=== PATIENT | male | born 1965 | race Caucasian/White ===

== ENCOUNTER 2018-09-10 20:02 | Emergency (ER) | payer OTHER, SELFPAY ==
[2018-09-10 20:03] VITALS: BP 140/85; PULSE 95; RESP 16; TEMP 36.6; O2SAT 98; BMI 22.9
[2018-09-10] MEDS: morphine 8 MG/ML Syringe IM (20:21)
[2018-09-10] MEDS: Orphenadrine 60 MG/2 ML Ampul IM (20:21)
[2018-09-10] MEDS: HYDROmorphone 1 MG/ML Syringe IM (21:10)
--- NOTE | 2018-09-10 21:42 | ED.DCSUM_ITS ---
- ER Visit Summary Date of Service: 09/10/18 Chief Complaint: Back pain History of Present Illness: The patient is a 53 M who presents with back pain. It started today. He states it occurred when he was lifting. He has pain in the lumbar region. He states it is locked up. He denies numbness or tingling to the legs. No bowel or bladder incontinence. He was diagnosed with sciatica 3 months ago. This was better with steroids and Flexeril. He took nothing for this at home today. Physical Examination: Vital signs reviewed. HEENT exam unremarkable. Heart is regular rate and rhythm without murmurs. Lungs are clear to auscultation. Abdomen is soft and nontender. Back exam reveals lumbar tenderness to palpation. Extremities reveal no edema. Skin exam normal. Neurologic exam normal. Test Results: None performed Emergency Department Course and Treatment: Patient was given morphine and Norflex. He continues to have pain so he was given Dilaudid. He states he still having a lot of pain. Told him that there is nothing else that we could do for him at this time. I will give him prednisone here and for home. I will give him a short course of [place] and Flexeril. He will follow-up with his PCP Treatment Plan: [] Disposition: Discharge Impression: Lumbar strain This note was generated with [employer] dictation software. It may contain incorrect words, spelling, and punctuation that were not noted in review of the chart prior to signing ED Disposition - Plan for ED Patient: Chief Complaint: Back Referrals: [facility] Doctor,Out of [Primary Care Provider] -
--- NOTE | 2018-09-10 21:42 | ED.DEP ---
ED Disposition - Plan for ED Patient: Disposition: Home or Assisted Living Chief Complaint: Back Instructions: ED Sciatica Prescriptions: Hydrocodone Bitart/Apap 5-325 [[place] 5MG-325MG] 1 tab PO Q6H PRN PRN 3 Days #10 tab PRN Reason: Pain Prednisone [Deltasone] 40 mg PO DAILY #10 tab Cyclobenzaprine [Flexeril] 10 mg PO TID PRN #20 tab PRN Reason: Muscle Spasm Referrals: [facility] Doctor,Out of [Primary Care Provider] -
[2018-09-10] MEDS: predniSONE 20 MG Tablet 60 MG PO (21:59)
[2018-09-10 22:00] VITALS: BP 119/69; PULSE 66; RESP 14; O2SAT 94
== END 2018-09-10 22:02 | disposition home or self-care (01) ==
PROVIDERS: Emergency Provider Emergency Medicine
DX: S39.012A Strain of muscle, fascia and tendon of lower back, initial encounter (principal); Z79.899 Other long term (current) drug therapy; X58.XXXA Exposure to other specified factors, initial encounter; Y93.89 Activity, other specified; Y92.89 Other specified places as the place of occurrence of the external cause; Y99.8 Other external cause status
CPT/HCPCS: 96372; 99283

== ENCOUNTER → 2019-04-27 | Outpatient (CLI) | payer OTHER, SELFPAY ==
[2019-04-27 18:19] LABS: AST(SGOT) 22 U/L (15-37); Alanine Aminotransfer ALT/SGPT 41 U/L (16-61); Alkaline Phosphatase 102 U/L (45-117); Bilirubin, Direct 0.09 mg/dL (0.00-0.30)
== END | disposition home or self-care (01) ==
LOC: MTLAB 15:55
DX: R53.81 Other malaise (principal)
CPT/HCPCS: 36415; 82247; 82248; 84075; 84450; 84460

== ENCOUNTER → 2019-11-10 10:08 | Outpatient (CLI) | payer OTHER, SELFPAY ==
[2019-11-10 11:11] LABS: ALB/GLOB Ratio 0.9 RATIO (0.9-2.4); AST(SGOT) 20 U/L (15-37); Alanine Aminotransfer ALT/SGPT 32 U/L (16-61); Albumin, Serum 3.6 g/dL (3.2-5.0); Alkaline Phosphatase 85 U/L (45-117); Anion Gap 7 (5-15); BUN 11 mg/dL (7-18); BUN/Creat Ratio 9.6 RATIO (10-20); Calcium,Total 8.6 mg/dL (8.5-10.1); Chloride 104 mmol/L (98-107); Cholesterol 256 mg/dL (200); Creatinine, Serum 1.15 mg/dL (0.70-1.30); EST Glomerular Filtration Rate 70 mL/min (>60); Est Glom Filt Rate - Afr Amer 85 mL/min (>60); Glucose 108 mg/dL (74-106); High Density Lipoprotein 27 mg/dL; PSA,Total - Annual Screen 0.55 ng/mL (0.00-4.00); Potassium 4.1 mmol/L (3.5-5.1); Protein, Total 7.6 g/dL (6.4-8.2); Sodium Level 138 mmol/L (136-145); Triglycerides 318 mg/dL; Very Low Density Lipoprotein 64 mg/dL (5-40)
== END ==
DX: Z12.6 Encounter for screening for malignant neoplasm of bladder (principal); Z12.5 Encounter for screening for malignant neoplasm of prostate
CPT/HCPCS: 36415; 80053; 80061; 84153; G0103

== ENCOUNTER → 2021-07-06 08:55 | Outpatient (CLI) | payer OTHER, SELFPAY ==
[2021-07-06 09:50] LABS: AST(SGOT) 17 U/L (15-37); Alanine Aminotransfer ALT/SGPT 22 U/L (16-61); Albumin, Serum 3.8 g/dL (3.2-5.0); Alkaline Phosphatase 41 U/L (45-117); Anion Gap 4 (5-15); BUN 17 mg/dL (7-18); Calcium,Total 8.7 mg/dL (8.5-10.1); Chloride 110 mmol/L (98-107); Cholesterol 188 mg/dL (200); Creatinine, Serum 1.55 mg/dL (0.70-1.30); EST Glomerular Filtration Rate 49 mL/min (>60); Est Glom Filt Rate - Afr Amer 60 mL/min (>60); Globulin 3.7 g/dL (2.2-4.2); Glucose 121 mg/dL (74-106); High Density Lipoprotein 41 mg/dL; Protein, Total 7.5 g/dL (6.4-8.2); Sodium Level 138 mmol/L (136-145); Triglycerides 97 mg/dL; Very Low Density Lipoprotein 19 mg/dL (5-40)
== END ==
PROVIDERS: PCP Family Medicine; Referring Provider Family Medicine; Visit Provider Family Medicine
DX: E78.2 Mixed hyperlipidemia (principal)
CPT/HCPCS: 36415; 80053; 80061

== ENCOUNTER → 2022-01-03 | Outpatient (CLI) | payer OTHER, SELFPAY ==
[2022-01-03 11:04] LABS: Hemoglobin A1c 5.4 % (3.8-5.6)
[2022-01-03 11:06] LABS: ALB/GLOB Ratio 1.1 RATIO (0.9-2.4); AST(SGOT) 21 U/L (15-37); Alanine Aminotransfer ALT/SGPT 27 U/L (16-61); Albumin, Serum 3.9 g/dL (3.2-5.0); Alkaline Phosphatase 35 U/L (45-117); Anion Gap 8 (5-15); BUN 20 mg/dL (7-18); BUN/Creat Ratio 13.2 RATIO (10-20); Calcium,Total 9.4 mg/dL (8.5-10.1); Chloride 107 mmol/L (98-107); Cholesterol 219 mg/dL (200); Creatinine, Serum 1.52 mg/dL (0.70-1.30); EST Glomerular Filtration Rate 50 mL/min (>60); Est Glom Filt Rate - Afr Amer 61 mL/min (>60); Globulin 3.5 g/dL (2.2-4.2); Glucose 120 mg/dL (74-106); High Density Lipoprotein 42 mg/dL; PSA,Total - Annual Screen 0.89 ng/mL (0.00-4.00); Potassium 3.9 mmol/L (3.5-5.1); Protein, Total 7.4 g/dL (6.4-8.2); Sodium Level 138 mmol/L (136-145); Thyroid Stim Hormone (TSH) 1.93 uIU/mL (0.358-3.74); Triglycerides 124 mg/dL; Very Low Density Lipoprotein 25 mg/dL (5-40)
== END | disposition home or self-care (01) ==
PROVIDERS: PCP Family Medicine; Visit Provider Family Medicine
DX: E78.2 Mixed hyperlipidemia (principal); R94.4 Abnormal results of kidney function studies; R73.09 Other abnormal glucose; Z12.5 Encounter for screening for malignant neoplasm of prostate
CPT/HCPCS: 36415; 80053; 80061; 83036; 84153; 84439; 84443; G0103

== ENCOUNTER → 2023-02-27 | Outpatient (CLI) | payer OTHER, SELFPAY ==
[2023-02-27 09:58] LABS: PSA,Total - Annual Screen 0.95 ng/mL (0.00-4.00)
== END | disposition home or self-care (01) ==
LOC: LAB 08:42
PROVIDERS: PCP Family Medicine; Referring Provider Urology; Visit Provider Urology
DX: Z12.5 Encounter for screening for malignant neoplasm of prostate (principal)
CPT/HCPCS: 36415; 84153; G0103

== ENCOUNTER 2024-11-01 14:21 | Emergency (ER) | payer OTHER, SELFPAY ==
[2024-11-01] VITALS (14 sets, daily range): BP systolic 116–146; BP diastolic 65–83; PULSE 62–89; RESP 11–28; TEMP 36.2; O2SAT 94–97; BMI 24.8
--- NOTE | 2024-11-01 16:09 | EKG12_ITS ---
Test Reason : CP Blood Pressure : */* mmHG Vent. Rate : 85 BPM Atrial Rate : 85 BPM P-R Int : 164 ms QRS Dur : 92 ms QT Int : 352 ms P-R-T Axes : 34 -85 54 degrees QTcB Int : 418 ms Normal sinus rhythm Left axis deviation Pulmonary disease pattern Incomplete right bundle branch block Cannot rule out Inferior infarct , age undetermined Abnormal ECG Confirmed by MUMTAZ CASTILLO, LEELEE ([id number]), general expeditor KELLY GONZALEZ ([id number]) on 11/02/2024 8:17:35 AM Referred By: ZAKIA/CHEPE Confirmed By: LEELEE PANDYA MD
--- NOTE | 2024-11-01 16:10 | ED.VIS.CHEST ---
HPI History of Present Illness Chief Complaint: Chest Pain Informant: patient Narrative Narrative: Epigastric chest burning for over 24 hours. He was able to sleep awake and noticed symptoms. States vague. No sharp sensations no cough. Normal bowel movement this morning. Took antacids no relief. Hypertension hyperlipidemia borderline diabetes. Tobacco history. Reports strong family history of heart attacks in the family. He had a stress test over 15 years ago. No heart caths. He states with symptoms not going away he came to get evaluated. Denies any black or bloody stools. Denies any cough. Prior Similar Symptoms: No Recent Illness/Hospitalization: No CVD Risk Factors: Positive for Hypertension, Diabetes, Hypercholesterolemia, Family History 1' </=55 and Smoking PE Risk Factors: Negative for Recent Travel/Surgery, Recent Immobilization or Prior DVT or PE [facility] Medical History Essential hypertension Anxiety Mixed hyperlipidemia Family history of coronary artery disease Appendicitis Home Medications ?Medication ?Instructions ?Recorded ?Last Taken ?Type duloxetine 60 mg capsule,delayed 60 mg PO DAILY 11/17/14 04/04/17 09:00 History release mirtazapine 15 mg tablet 7.5 mg PO QHS 11/17/14 04/04/17 21:00 History alprazolam 2 mg tablet (Xanax) 2 mg PO TID PRN anxiety 01/03/23 Unknown History dicyclomine 20 mg tablet 20 mg PO BID 01/03/23 Unknown History fenofibrate nanocrystallized 145 145 mg PO DAILY 01/03/23 Unknown History mg tablet lisinopril 40 mg tablet 40 mg PO DAILY 01/03/23 Unknown History meloxicam 15 mg tablet 15 mg PO DAILY 01/03/23 Unknown History sildenafil 100 mg tablet 100 mg PO DAILY PRN 01/03/23 Unknown History tadalafil 20 mg tablet (Cialis) 20 mg PO DAILY PRN 01/03/23 Unknown History tamsulosin 0.4 mg capsule (Flomax) 0.4 mg PO DAILY 01/03/23 Unknown History metoprolol tartrate 25 mg tablet 50 mg (2 x 25 mg) PO ONCE #2 tabs 02/05/23 Unknown Rx pantoprazole 40 mg tablet,delayed 40 mg PO DAILY #30 tabs 11/01/24 Unknown Rx release Allergy/AdvReac Type Severity Reaction Status Date / Time No Known Allergies Allergy Verified 11/01/24 14:24 Family History Father CAD (coronary artery disease) Hypertension Myocardial infarction Grandfather Hypertension Myocardial infarction CAD (coronary artery disease) Surgical History History of appendectomy Social History Smoking Status: Current every day smoker tobacco type: cigarettes alcohol intake: former substance use type: does not use caffeine: Yes ROS ROS ED Constitutional Constitutional ED: Denies chills, fever(s) or sweats ENT ENT ED: Denies sore throat Cardiovascular Cardiovascular: Reports chest pain; Denies leg edema, palpitations or racing heartbeat Respiratory/Chest Respiratory/Chest: Denies cough, dyspnea or dyspnea on exertion Gastrointestinal Gastrointestinal: Reports abdominal pain; Denies diarrhea, nausea or vomiting Genitourinary Genitourinary ED: Denies dysuria, hematuria or urinary frequency Musculoskeletal Musculoskeletal: Denies back pain, extremity pain or neck pain Integumentary Denies rash or wounds Neurologic Neurologic: Denies headache(s), paresthesias or weakness EXAM Physical Exam Const Vital Signs: 11/01/24 14:22 11/01/24 15:21 11/01/24 15:51 Temperature 97.2 F L Temperature Source Temporal Pulse Rate 89 74 71 Respiratory Rate 16 21 H 20 H Blood Pressure 146/83 H 129/76 H Blood Pressure Mean 104 93 Pulse Ox 97 97 97 Oxygen Delivery Method Room Air Room Air 11/01/24 16:00 11/01/24 16:09 11/01/24 16:15 Temperature Temperature Source Pulse Rate 70 Respiratory Rate 21 H Blood Pressure 130/70 H 129/65 H Blood Pressure Mean 88 85 Pulse Ox 96 Oxygen Delivery Method Room Air 11/01/24 16:15 11/01/24 16:30 11/01/24 16:45 Temperature Temperature Source Pulse Rate 72 69 68 Respiratory Rate 21 H 26 H 24 H Blood Pressure 129/65 H 126/70 H 116/75 Blood Pressure Mean 85 87 90 Pulse Ox 96 94 95 Oxygen Delivery Method 11/01/24 17:00 11/01/24 17:15 11/01/24 17:30 Temperature Temperature Source Pulse Rate 69 64 64 Respiratory Rate 15 23 H 27 H Blood Pressure 130/68 H Blood Pressure Mean 88 Pulse Ox 95 Oxygen Delivery Method 11/01/24 17:45 11/01/24 18:00 11/01/24 18:15 Temperature Temperature Source Pulse Rate 62 64 Respiratory Rate 27 H 28 H 11 L Blood Pressure Blood Pressure Mean Pulse Ox Oxygen Delivery Method 11/01/24 18:25 Temperature 97.2 F L Temperature Source Pulse Rate 64 Respiratory Rate 11 L Blood Pressure 130/68 H Blood Pressure Mean 88 Pulse Ox 95 Oxygen Delivery Method Positive well nourished and well developed General Appearance ED: well developed and NAD HEENT Reports moist mucous membranes normocephalic and atraumatic Eyes General Eye ED: Yes normal appearance of both eyes Neck full ROM Chest Wall Chest: Negative for tenderness Resp normal respiratory effort and normal air movement Effort and Inspection: symmetric chest movement; Negative for respiratory distress Cardio regular rate, regular rhythm and no murmurs Peripheral Pulses: pulses 2+ throughout GI normal to inspection, nondistended, normoactive bowel sounds GI Narrative: Mild epigastric tenderness. Negative Marte's or McBurney's tenderness. Palpation: Negative for guarding or rebound tenderness present Extremity normal to inspection General Extremety ED: Negative for edema or tenderness General Extremity: Negative for edema Neuro oriented x3 and no sensory deficits noted Sensorium / Orientation: awake and alert Skin no rashes or lesions noted and no wounds Heart Score History: Slightly/Non-Suspicious ECG: Normal Age: >45 - <65 years Risk Factors: >/= 3 Risk Factors or History of CAD Troponin: </= Normal Limit Score: 3 MDM MDM MDM Narrative Medical decision making narrative: Interventions / MDM: Differential diagnosis: Chest pain, epigastric pain Diagnosis considered but do not suspect: ACS however EKG negative cardiac enzyme. No clinical cholecystitis, pancreatitis however lipase normal. My EKG interpretation: Sinus rate of 85, no ST or T wave changes. Imaging independently reviewed and interpreted by myself: 2 view chest x-ray: No acute process. External documents reviewed: N/A Test considered but not ordered:N/A ED course: Patient burning epigastric chest region. Cardiac risk factors. Nonsurgical abdomen. EKG sinus rhythm no acute findings. Persistent burning for over 24 hours. Single troponin ordered. Abdominal labs ordered. GI cocktail ordered. 181: Troponin negative with symptoms persisted over 24 hours neck troponin less likely cardiac in nature. Abdominal labs are normal. Chest x-ray interval myself read by radiology shows no acute process. He reports GI cocktail had no changes. At this time nonsurgical abdomen. To be placed on a PPI. To follow-up with his PCP with strict return precautions. Patient understands and agrees with plan. All questions were answered. Re-evaluation: stable Disposition discussed with patient/family/significant other: Patient Case discussed with consulting clinician: N/A This note was generated with [employer] dictation software. It may contain incorrect words, spelling, and punctuation that were not noted in checking the note before signing. Lab Data Attestation: I reviewed the patient's lab results. Labs: Laboratory Results - last 24 hr 11/01/24 15:45 WBC 11.6 H RBC 4.74 Hgb 14.5 Hct 42.5 MCV 89.7 MCH 30.6 MCHC 34.1 RDW Std Deviation 44.3 H RDW Coeff of [place] 13.5 Plt Count 420 MPV 9.6 Immature Gran % (Auto) 0.300 Neut % (Auto) 55.6 Lymph % (Auto) 29.8 [place] % (Auto) 10.4 H Eos % (Auto) 2.7 Baso % (Auto) 1.2 H Absolute Neuts (auto) 6.4 Absolute Lymphs (auto) 3.45 Nucleated RBC % 0 Sodium 140 Potassium 4.0 Chloride 106 Carbon Dioxide 21.3 Anion Gap 12 BUN 22 H Creatinine 1.53 H Estim Creat Clear Calc 53.01 Est GFR (MDRD) Non-Af 52 L BUN/Creatinine Ratio 14.2 Glucose 111 H Calcium 10.1 Total Bilirubin 0.25 Direct Bilirubin 0.12 AST 22 ALT 23 Alkaline Phosphatase 39 L Troponin T High Sens < 6 Total Protein 7.1 Albumin 4.3 Globulin 2.9 Lipase 43 Radiography Diagnostic Testing: Clinical Impression(s) from Imaging Studies Chest X-Ray 11/01/24 16:19 IMPRESSION: 1. No convincing or visible acute cardiopulmonary findings 2. Additional description as above. Reading Location: [facility] Discharge Plan Triage Chief Complaint: Chest Pain ED Provider: Siva Caicedo Dx/Rx/DC Orders Clinical Impression: Chest pain, Abdominal pain, epigastric Instructions: ED Chest Pain, Uncertain Cause, ED Epigastric Pain Uncertain Cause Prescriptions: New pantoprazole 40 mg tablet,delayed release (DR/EC) 40 mg PO DAILY Qty: 30 0RF No Action tamsulosin [Flomax] 0.4 mg capsule 0.4 mg PO DAILY tadalafil [Cialis] 20 mg tablet 20 mg PO DAILY PRN Rx Instructions: administer approximately 30min before sexual activity; do not use more than 1 dose per 24hrs meloxicam 15 mg tablet 15 mg PO DAILY sildenafil 100 mg tablet 100 mg PO DAILY PRN Rx Instructions: administer 30 minutes to 4 hours before activity fenofibrate nanocrystallized 145 mg tablet 145 mg PO DAILY lisinopril 40 mg tablet 40 mg PO DAILY dicyclomine 20 mg tablet 20 mg PO BID alprazolam [Xanax] 2 mg tablet 2 mg PO TID PRN (Reason: anxiety) mirtazapine 15 MG tablet 7.5 mg PO QHS Patient Comments: antidepressant duloxetine 60 MG capsule 60 mg PO DAILY Patient Comments: ANTIDEPRESSANT metoprolol tartrate 25 mg tablet 50 mg PO ONCE Qty: 2 0RF Rx Instructions: 1 hour prior to cardiac calcium score Primary Care Provider: Sushma Kasper Referrals: Juliana Almaraz DO [Non-Staff] - 3-5 Days Activity Restrictions/Additional Instructions: Cardiac workup negative. Lipase and liver enzymes also negative. Chest x-ray negative. Take medication as prescribed. Follow-up with your doctor. Develop worsening symptoms, return to the ED for reevaluation. Print Language: Turkmen Disposition Disposition: Home, Self Care Discharge Date/Time: 11/01/24 18:25
--- NOTE | 2024-11-01 16:19 | RAD_ITS ---
PROCEDURE: CHEST PA AND LATERAL (RADCXR), 11/01/2024 REASON FOR EXAM: CHEST PAIN TECHNIQUE: PA and lateral views of the chest were obtained. COMPARISON: None FINDINGS: Heart: Unremarkable. Mediastinum: Trace atherosclerosis in the arch. Lungs/pleura: Elevated right hemidiaphragm. Silhouetting of the right heart margin likely related to mild pectus configuration of the chest wall. No convincing focal consolidation. No effusion or visible pneumothorax. Bones: Trace cervicothoracic levoscoliosis. Demineralization suspected. Lines and support devices: None. RAD/Chest PA and Lateral IMPRESSION: 1. No convincing or visible acute cardiopulmonary findings 2. Additional description as above. Reading Location: [facility]
[2024-11-01 16:23] LABS: Absolute Lymphocyte Count 3.45 X10^3/uL (0.83-4.51); Absolute Neutrophil Count 6.4 X10^3/uL (2.0-7.7); Basophil# 0.14 X10^3/uL; Basophil% 1.2 % (0-1); Eosinophil# 0.31 X10^3/uL; Eosinophils% 2.7 % (0-5); Hematocrit 42.5 % (40-54); Hemoglobin 14.5 g/dL (13.0-16.5); Lymphocyte # 3.45 X10^3/ul (0.83-4.51); Lymphocyte % 29.8 % (19-41); Mean Corp Hgb Conc 34.1 g/dL (32-36); Mean Corpuscular Hgb 30.6 pg (27.0-32.0); Mean Corpuscular Volume 89.7 fL (80-94); Mean Platelet Vol. 9.6 fl (6.2-12.0); Monocyte% 10.4 % (0-10); NRBC Flagged by Analyzer 0 % (0-5); Neutrophil # 6.43 X10^3/uL (2.7-7.7); Neutrophil % 55.6 % (47-70); Platelet Count 420 K/mm3 (150-450); RBC Distribution Width CV 13.5 % (11.6-14.6); RBC Distribution Width SD 44.3 fl (35.1-43.9); Red Blood Count 4.74 M/mm3 (4.6-6.2); White Blood Count 11.6 K/mm3 (4.4-11.0)
[2024-11-01] MEDS: Lidocaine 2% Viscous15 ML UDC 15 ML PO (16:41)
[2024-11-01] MEDS: Mag Hydrox/Al Hydrox/Simeth 30 ML UDC PO (16:41)
[2024-11-01 16:58] LABS: AST(SGOT) 22 U/L (<=37); Alanine Aminotransfer ALT/SGPT 23 U/L (<=46); Albumin, Serum 4.3 g/dL (3.4-4.8); Alkaline Phosphatase 39 U/L (40-129); Anion Gap 12 (5-15); BUN 22 mg/dL (4-19); BUN/Creat Ratio 14.2 RATIO (10-20); Bilirubin, Direct 0.12 mg/dL (0.00-0.30); Calcium,Total 10.1 mg/dL (7.6-11.0); Carbon Dioxide 21.3 mmol/L (21.0-32.0); Chloride 106 mmol/L (98-108); Creatinine, Serum 1.53 mg/dL (0.70-1.20); EST Glomerular Filtration Rate 52 (>60); Estimated Creatinine Clearance 53.01 ml/min (50-250); Globulin 2.9 g/dL (2.2-4.2); Glucose 111 mg/dL (70-99); Lipase 43 U/L (13-75); Protein, Total 7.1 g/dL (5.9-8.4); Sodium Level 140 mmol/L (133-145); Total Bilirubin 0.25 mg/dL (0.00-1.30); Troponin T High Sensitivity < 6 ng/L (<=22)
== END 2024-11-01 18:25 | disposition home or self-care (01) ==
PROVIDERS: Emergency Provider Emergency Medicine; PCP Nurse Practitioner Family; Visit Provider Emergency Medicine
DX: R07.9 Chest pain, unspecified (principal); F17.210 Nicotine dependence, cigarettes, uncomplicated; R10.13 Epigastric pain; E78.2 Mixed hyperlipidemia; I10 Essential (primary) hypertension; Z79.899 Other long term (current) drug therapy
CPT/HCPCS: 71046; 80048; 80076; 83690; 84484; 85025; 93005; 99284